=== PATIENT | female | born 1960 | race Two or more races ===

== ENCOUNTER 2024-02-24 14:04 | Emergency (ER) | payer MEDICARE, SELFPAY ==
[2024-02-24 14:26] VITALS: BP 100/69; PULSE 71; RESP 18; TEMP 36.7; O2SAT 99; BMI 35.4
--- NOTE | 2024-02-24 15:20 | XR_ITS ---
Examination: PA lateral chest 2 views Technique: Upright PA lateral chest 2 views Exam date and time: March 05, 2024 1533 hrs. Indications: Onset chest pain today. Findings: Normal heart size. No pneumonia or pulmonary edema Moderate osteopenia Impression: No pneumonia or pulmonary edema
--- NOTE | 2024-02-24 15:20 | EKG_ITS ---
[facility] Test Date: 2024-02-24 Pat Name: KRISTAL CHAVARRIA Department: Room: - Gender: Female Online Merchant: : 1960 Requested By: Jacinto Silva ([facility]) Order Number: [id number] Reading MD: Jacinto Silva ([facility]) Measurements Intervals Velarde Rate: 77 P: -7 GA: 119 QRS: -7 QRSD: 85 T: -1 QT: 378 QTc: 428 Interpretive Statements SINUS RHYTHM WITH SHORT GA INTERVAL LOW QRS VOLTAGE IN PRECORDIAL LEADS [QRS DEFLECTION < 1.0 mV IN CHEST LEADS] POSSIBLE ANTERIOR MYOCARDIAL INFARCTION , PROBABLY OLD [30 ms Q WAVE IN V3/V4, OR R < 0.2 mV IN V4] Compared to ECG 02/14/2023 14:43:18 Short GA interval now present Myocardial infarct finding still present /store/S0/[id number]/ecg/[id number].pdf
--- NOTE | 2024-02-24 15:22 | PD.EDRME ---
Rapid Medical Screening Exam RME Arrival date/time: 02/24/24 14:04 63-year-old female with past medical history of liver cirrhosis presents emergency department complaining of shortness of breath and generalized cramps throughout her body. Chief Complaint: General Adult/Misc Complain Time Seen by Provider: 02/24/24 15:15 Vital signs: Vital Signs Temperature 98.0 F 02/24/24 14:26 Pulse Rate 71 02/24/24 14:26 Respiratory Rate 18 02/24/24 14:26 Blood Pressure 100/69 02/24/24 14:26 Pulse Oximetry (%) 99 02/24/24 14:26 Oxygen Delivery Method Room Air 02/24/24 14:26
[2024-02-24 15:46] LABS: Basophils % (Auto) 1 % (0-2.5); Eosinophils # (Auto) 0.2 Thou/mm3 (0.0-0.5); Eosinophils % (Auto) 5 % (0-10); Hematocrit 29.7 % (36.0-46.0); Hemoglobin 9.9 g/dL (12.0-16.0); Immature Granulocytes % (Auto) 0 % (0-0); Immature Granulocytes Auto 0.01 Thou/mm3 (0.00-0.00); Lymphocytes # (Auto) 0.7 Thou/mm3 (1.0-4.8); Lymphocytes % (Auto) 16 % (10-50); Mean Corpuscular HGB Conc 33.3 g/dl (31.0-37.0); Mean Corpuscular Hemoglobin 32.6 pg (25.0-35.0); Mean Corpuscular Volume 98 fL (80-100); Monocytes # (Auto) 0.4 Thou/mm3 (0.0-0.8); Monocytes % (Auto) 9 % (0-12); Neutrophils # (Auto) 2.9 Thou/mm3 (1.8-7.7); Neutrophils % (Auto) 69 % (37-80); Nucleated Red Blood Cell % 0 /100 WBC (0); RDW Standard Deviation 52.9 fL (36.4-46.3); Red Blood Count 3.04 Miln/mm3 (4.00-5.20); White Blood Count 4.2 Thou/mm3 (3.6-11.0)
[2024-02-24 15:52] LABS: Platelet Count 57 Thou/mm3 (140-440)
[2024-02-24 15:55] LABS: B-Type Natriuretic Peptide 85 pg/mL (0-100); INR 1.1 (0.9-1.3); Partial Thromboplastin Time 25.2 Seconds (22.0-36.0); Prothrombin Time 12.1 Seconds (9.0-12.2)
[2024-02-24 15:57] LABS: Alanine Aminotransferase 13 U/L (10-49); Albumin, Serum 2.6 gm/dL (3.4-4.8); Albumin/Globulin Ratio 0.8 (1.2-2.2); Alkaline Phosphatase 90 U/L (46-116); Anion Gap 6 (7-16); Aspartate Amino Transferase 36 U/L (0-34); BUN/Creatinine Ratio 23 Ratio (12-20); Bilirubin,Total 0.9 mg/dL (0.3-1.2); Blood Urea Nitrogen 41 mg/dL (9-23); Calcium 8.5 mg/dL (8.3-10.6); Calcium (Corrected) 9.6 mg/dL (8.5-10.1); Carbon Dioxide 17.4 mMol/L (20.0-31.0); Chloride 115 mMol/L (98-107); Creatinine (Component) 1.8 mg/dL (0.6-1.3); Estimated Creatinine Clearance 35.1 mL/min (>60); Globulin 3.2 gm/dL (2.3-3.5); Glucose 139 mg/dL (74-106); Lipase 73 U/L (12-53); Magnesium 2.1 mg/dL (1.6-2.6); Osmolality,Calculated 287 (275-295); Potassium 4.4 mMol/L (3.4-5.1); Sodium 138 mMol/L (136-145); Total Protein 5.8 gm/dL (5.7-8.2); Troponin I < 0.002 ng/mL (0.0-0.045); eGFR 32 See Note
[2024-02-24 16:03] LABS: Collection Type, Urine Clean Catch
[2024-02-24 16:14] LABS: Slide Review Platelets confirmed
[2024-02-24 16:22] LABS: Amphetamine/Methamp Scrn,U Negative (Negative); Barbiturate Screen,Urine Negative (Negative); Benzodiazepines Screen,Urine Negative (Negative); Benzoylecgonine Screen, Ur Negative (Negative); Fentanyl Screen,Urine Negative (Negative); Opiate Screen,Urine Negative (Negative); THC Screen,Urine Negative (Negative)
[2024-02-24 16:24] LABS: Bilirubin,Urine Negative (Negative); Blood,Urine Trace (Negative); Clarity,Urine Turbid (Clear/Hazy); Color,Urine Yellow (Lt Yel-Yel); Culture Indicated,Urine Not Indicated; Glucose, Urine Negative (Negative); Hyaline Casts,Urine < 1 /hpf (0-1); Ketones,Urine Negative (Negative); Leukocyte Esterase,Urine Positive (Negative); Nitrite,Urine Negative (Negative); PH,Urine 5.5 (5.0-7.0); Protein,Urine Trace (Neg - Trace); RBC,Urine 1 /hpf (0-3); Specific Gravity,Urine 1.022 (1.001-1.035); Squamous Epithelial Cell,Urine 10 /hpf (0-5); Urobilinogen,Urine Negative mg/dL (0.0-1.0); WBC,Urine 5 /hpf (0-5)
[2024-02-24 16:39] VITALS: BP 105/64; RESP 18; TEMP 36.6
[2024-02-24] MEDS: HYDROcodone/APAP 5/325 TABLET 1 TAB PO (16:42)
--- NOTE | 2024-02-24 16:43 | PC.NURSE ---
PATIENT C/O OF BODY ACHES ALL OVER CHRONIC WORSE TODAY. MOANING AND GROANING.
--- NOTE | 2024-02-24 16:57 | EDNOTE_ITS ---
ED General RME/HPI General Chief complaint: General Adult/Misc Complain Stated complaint: CRAMPS ALL OVER BODY HAS CIRRHOSIS Time Seen by Provider: 02/24/24 15:15 Arrival date/time: 02/24/24 14:04 RME / HPI RME / HPI narrative: 63-year-old female with past medical history of liver cirrhosis secondary to hepatitis C and previous alcohol abuse presents emergency department complaining of shortness of breath and generalized cramps throughout her body. Severity of symptoms moderate. Patient denies any diarrhea denies any vomiting denies any other complaints no medication was taken prior travel. Related Data Home Medications ?Medication ?Instructions ?Recorded ?Confirmed allopurinol 100 mg tablet 100 mg PO QDAY 02/15/23 02/15/23 gabapentin 100 mg capsule 100 mg PO TID 02/15/23 02/15/23 lactulose 10 gram/15 mL oral 15 ml PO TID 02/15/23 02/15/23 solution midodrine 10 mg tablet 10 mg PO TID 02/15/23 02/15/23 sodium bicarbonate 650 mg tablet 650 mg PO BID 02/15/23 02/15/23 Previous Rx's ?Medication ?Instructions ?Recorded ciprofloxacin HCl 500 mg tablet 500 mg PO QDAY #30 tabs 02/17/23 furosemide 40 mg tablet 40 mg PO QDAY #30 tabs 02/17/23 spironolactone 25 mg tablet 25 mg PO QDAY #30 tabs 02/17/23 sodium bicarbonate 650 mg tablet 650 mg PO BID #30 tabs 02/24/24 Allergies Allergy/AdvReac Type Severity Reaction Status Date / Time No Known Allergies Allergy Verified 02/24/24 14:07 Review of Systems Review of Systems Narrative Review of Systems: Review of system reviewed and within normal limits except mentioned in HPI ED Exam Narrative Physical exam: VITAL SIGNS: Reviewed. GENERAL APPEARANCE: Alert and interactive, follows commands, no acute distress, HEAD AND FACE: Non-traumatic. ENT: PERRL, pink conjunctivitis, eyelid no trauma, Mucous membrane moist. NECK: Supple, nontender, no nuchal rigidity. CHEST: No tenderness, no crepitus, no paradoxical movement, no retractions. LUNGS: Clear, well ventilated, symmetric, no rales, no wheezing, no ronchi, no stridor, good breath sounds bilaterally. HEART: Regular rate, regular rhythm, no murmur, no gallops. ABDOMEN: Soft, positive bowel sounds, nondistended, no guarding, nontender, no rebound, no masses, RECTAL: Deferred. GENITAL: Deferred. NEUROLOGICAL: Gross motor function intact sensory function intact, Appropriate for age. MUSCULOSKELETAL: low back nontender, full range of motion. EXTREMITIES: Nontender, full range of motion. SKIN: Color pink, dry, no rash, no lacerations, no abrasions, no contusions. LYMPHATICS: Deferred. Course Quality Measures none Orders Category Date Time Status Bedside COVID-19 Antigen Test NOW Care 02/24/24 15:21 Active Bedside Influenza A&B Antigen Test NOW Care 02/24/24 15:21 Active EKG (ED ONLY) *Do not use* NOW Care 02/24/24 15:20 Completed Insert IV NOW Care 02/24/24 20:45 Active EKG (ED Only) Stat Exams 02/24/24 15:20 Draft XR chest 2V Stat Exams 02/24/24 15:20 Completed BNP [B-Type Natriuretic Peptide] Stat Lab 02/24/24 15:30 Completed CBC Stat Lab 02/24/24 15:30 Completed Comprehensive Metabolic Panel Stat Lab 02/24/24 15:30 Completed Drug Screen,Urine Stat Lab 02/24/24 15:55 Completed Lipase Stat Lab 02/24/24 15:30 Completed Mag [Magnesium] Stat Lab 02/24/24 15:30 Completed PT [Prothrombin Time with INR] Stat Lab 02/24/24 15:30 Completed PTT [Partial Thromboplastin Time] Stat Lab 02/24/24 15:30 Completed Troponin I Stat Lab 02/24/24 15:30 Completed Urinalysis, C/S if Indicated Stat Lab 02/24/24 15:55 Completed VBG [Venous Blood Gas] Stat Lab 02/24/24 17:02 Completed HYDROcodone*/APAP 5/325 [[place] 5/325] Med 02/24/24 16:32 Discontinued 1 tab PO X1 ONE Sodium Bicarb 8.4% 50ml Vial* Med 02/24/24 18:05 Discontinued 50 meq IV X1 ONE Sodium Chloride 0.9% 1000 ml [Ns] 1,000 ml Med 02/24/24 18:05 Discontinued IV 999 mls/hr Vital Signs Vital signs: Vital Signs Temperature 98.0 F 02/24/24 14:26 Pulse Rate 71 11/09/24 14:26 Respiratory Rate 18 02/24/24 14:26 Blood Pressure 100/69 02/24/24 14:26 Pulse Oximetry (%) 99 02/24/24 14:26 Oxygen Delivery Method Room Air 02/24/24 14:26 [facility] Patient data External records reviewed:: None Clinical information provided by:: patient Social determinants that could affect healthcare access:: none Patient has the following chronic illnesses:: Chronic kidney disease How is presenting disease/condition affected by chronic disease/condition?: e xacerbated by Evaluation data The following diagnostics were reviewed and interpreted by me:: lab results Lab and/or radiology exams considered but not ordered:: None Interpretation Summary: CMP is significant for chloride 115, M17.4 Anion gap of 6 BUN of 47 creatinine of 1.8 glucose 139 patient pH and venous blood gas was noted to be 7.3. I personally reviewed and interpreted the x-ray of this patient. There is no acute abnormalities found, no infiltrates no pneumothorax no hemothorax normal chest x-ray. Review of other structures was without significant abnormal findings also. I additionally reviewed the radiologist report and agree with the interpretation. EKG as interpreted by me showed normal sinus rhythm, ventricular rate of 77 bpm, no ST segment elevation or depression noted. Medications Medications considered but not ordered:: None Medication administrations:: Medication Administration History Discontinued Medications Hydrocodone Bitart/Acetaminophen (Hydrocodone/Apap 5/325 Tablet) 1 tab PO X1 ONE Stop: 02/24/24 16:33 Last Admin: 02/24/24 16:42 Dose: 1 tab Documented By: USMAN Sodium Chloride (Ns) 1,000 mls @ 999 mls/hr IV .Q1H1M ONE Stop: 02/24/24 19:05 Last Admin: 02/24/24 21:31 Dose: 999 mls/hr Documented By: GERMANIA Sodium Bicarbonate (Sodium Bicarb Inj 8.4% 1 Meq/Ml Vial 50 Ml) 50 meq IV X1 ONE Stop: 02/24/24 18:06 Last Admin: 02/24/24 21:31 Dose: 50 meq Documented By: GERMANIA Cawood IV fluids and sodium bicarb Consultations Consultation(s) initiated? (list below): Yes Consultation #1 (Physician, Specialty, Details): Consulted Dr. Jolly , direct sales representative on-call, and advised me to medicate the patient with IV fluids sodium bicarb and discharged on bicarb also. Follow-up with the clinic in few days. Diagnosis Differential Diagnosis ED Complaint MDM: Hyperchloremic metabolic acidosis, non- anion gap, dehydration, CKD Most likely diagnosis given after review of the tests above:: CKD Admission Indicated Admission indicated?: not indicated Explain why admission is indicated or not indicated:: Stable Admission Request Was there a request for admission?: No Disposition Plan Disposition Plan: Discharge Discharge Attestation Discharge Attestation: The patient was given an opportunity to ask questions and understood the discharge instructions. Discharge instructions specifically effects, indications for sooner follow up or return to the emergency department, and the expected course of current diagnosis. Patient condition: Stable Medical Decision Making MDM Narrative MDM Narrative: Spoke with Dr. Jolly regarding patient's case including laboratory results, and told me to give IV fluids and give sodium bicarb and send the patient home on sodium bicarb and follow-up in her clinic next week. Plan of care discussed with the patient agrees with the plan. Differential Diagnosis Differential Diagnosis: Hyperchloremic metabolic acidosis, non-anion gap, dehydration, CKD Lab Data 02/24/24 15:30 02/24/24 15:30 Labs: Lab Results 02/24/24 02/24/24 02/24/24 Range/Units 15:30 15:55 17:02 WBC 4.2 (3.6-11.0) Thou/mm3 RBC 3.04 L (4.00-5.20) Miln/mm3 Hgb 9.9 L (12.0-16.0) g/dL Hct 29.7 L (36.0-46.0) % MCV 98 (80-100) fL MCH 32.6 (25.0-35.0) pg MCHC 33.3 (31.0-37.0) g/dl RDW Std Deviation 52.9 H (36.4-46.3) fL Plt Count 57 L (140-440) Thou/mm3 Neut % (Auto) 69 (37-80) % Lymph % (Auto) 16 (10-50) % [place] % (Auto) 9 (0-12) % Eos % (Auto) 5 (0-10) % Baso % (Auto) 1 (0-2.5) % Neut # (Auto) 2.9 (1.8-7.7) Thou/mm3 Lymph # (Auto) 0.7 L (1.0-4.8) Thou/mm3 [place] # (Auto) 0.4 (0.0-0.8) Thou/mm3 Eos # (Auto) 0.2 (0.0-0.5) Thou/mm3 Baso # (Auto) 0.0 (0.0-0.2) Thou/mm3 Immature Gran # (Auto) 0.01 H (0.00-0.00) Thou/mm3 Absolute Nucleated RBC 0.00 (0.00-0.00) Thou/mm3 Immature Gran % 0 (0-0) % Nucleated RBC % 0 (0) /100 WBC PT 12.1 (9.0-12.2) Seconds INR 1.1 (0.9-1.3) APTT 25.2 (22.0-36.0) Seconds VBG pH 7.30 L (7.33-7.66) VBG pCO2 39 (36-56) mmHg VBG pO2 27 (15-58) mmHg VBG O2 Sat (Sonia) 42 L (96-97) % VBG Base Excess -7 L (-3-3) Sodium 138 (136-145) mMol/L Potassium 4.4 (3.4-5.1) mMol/L Chloride 115 H (98-107) mMol/L Carbon Dioxide 17.4 L (20.0-31.0) mMol/L Anion Gap 6 L (7-16) BUN 41 H (9-23) mg/dL Creatinine 1.8 H (0.6-1.3) mg/dL Estim Creat Clear Calc 35.1 L (>60) mL/min eGFR 32 L (60 - ) See Note BUN/Creatinine Ratio 23 H (12-20) Ratio Glucose 139 H (74-106) mg/dL Calculated Osmolality 287 (275-295) Calcium 8.5 (8.3-10.6) mg/dL Corrected Calcium 9.6 (8.5-10.1) mg/dL Magnesium 2.1 (1.6-2.6) mg/dL Total Bilirubin 0.9 (0.3-1.2) mg/dL AST 36 H (0-34) U/L ALT 13 (10-49) U/L Alkaline Phosphatase 90 (46-116) U/L Troponin I < 0.002 (0.0-0.045) ng/mL B-Natriuretic Peptide 85 (0-100) pg/mL Total Protein 5.8 (5.7-8.2) gm/dL Albumin 2.6 L (3.4-4.8) gm/dL Globulin 3.2 (2.3-3.5) gm/dL Albumin/Globulin Ratio 0.8 L (1.2-2.2) Lipase 73 H (12-53) U/L Ur Collection Type Clean Catch Urine Color Yellow (Lt Yel-Yel) Urine Clarity Turbid A (Clear/Hazy) Urine pH 5.5 (5.0-7.0) Ur Specific [place] 1.022 (1.001-1.035) Urine Protein Trace (Neg - Trace) Urine Glucose (UA) Negative (Negative) Urine Ketones Negative (Negative) Urine Blood Trace (Negative) Urine Nitrite Negative (Negative) Urine Bilirubin Negative (Negative) Urine Urobilinogen (Auto) Negative (0.0-1.0) mg/dL Ur Leukocyte Esterase Positive (Negative) Urine RBC 1 (0-3) /hpf Urine WBC 5 (0-5) /hpf Ur Squamous Epith Cells 10 H (0-5) /hpf Urine Bacteria None (None) Hyaline Casts < 1 (0-1) /hpf Ur Culture Indicated? Not Indicated Urine Opiates Screen Negative (Negative) Urine Fentanyl Screen Negative (Negative) Ur Barbiturates Screen Negative (Negative) U Amphetamin/Meth Scrn Negative (Negative) U Benzodiazepines Scrn Negative (Negative) U Cocaine Metab Screen Negative (Negative) U Marijuana (THC) Screen Negative (Negative) Misc Test Result Platelets confirmed Discharge Plan Plan Patient Disposition: HOME (Self Care) Disposition Comment: stable Prescriptions/Referrals Prescriptions/Med Rec: New sodium bicarbonate 650 mg tablet 650 mg PO BID Qty: 30 0RF No Action allopurinol 100 mg tablet 100 mg PO QDAY sodium bicarbonate 650 mg tablet 650 mg PO BID gabapentin 100 mg capsule 100 mg PO TID Patient Comments: take 1 capsule by mouth three times a day midodrine 10 mg tablet 10 mg PO TID Patient Comments: take 1 tablet by mouth three times a day lactulose 10 gram/15 mL solution 15 ml PO TID furosemide 40 mg tablet 40 mg PO QDAY Qty: 30 2RF spironolactone 25 mg tablet 25 mg PO QDAY Qty: 30 1RF ciprofloxacin HCl 500 mg tablet 500 mg PO QDAY Qty: 30 2RF Referrals: No Primary/Family,Physician [Primary Care Provider] - In 1 week Problem List Clinical Impression: CKD (chronic kidney disease) Patient/Caregiver Discharge Instructions Discharge Activity: activity as tolerated Education Materials: ED Chronic Kidney Disease (CKD) Additional Instructions: Thank you for the opportunity for serving you today. You are stable for discharged . You are advised to: Follow-up with your PCP in 1 to 2 days, follow-up with your direct sales representative as instructed Return to ED for worsening of symptoms Take medication as prescribed Print Language: Bhutanese Stand Alone Forms: [facility] Award Info., Patient Portal Info Letter PA/CERTIFIED HYPERBARIC TECHNOLOGIST Supervising Physician JEFFREY/SAMUEL Supervising Physician: MD Medina
[2024-02-24 17:27] LABS: Base Excess, Venous -7 (-3-3); O2 Saturation, Venous 42 % (96-97); PCO2, Venous 39 mmHg (36-56); PO2, Venous 27 mmHg (15-58)
[2024-02-24 20:21] VITALS: BP 121/68; PULSE 75; RESP 18; TEMP 36.3; O2SAT 100
[2024-02-24] MEDS: SODIUM CHLORIDE 0.9% 1000 ML 1,000 ML 999 ML IV (21:31)
[2024-02-24] MEDS: SODIUM BICARB INJ 8.4% 1 mEq/ML VIAL 50 ML 50 MEQ IV (21:31)
[2024-02-24 22:00] VITALS: BP 123/45; PULSE 75; RESP 18; TEMP 36.3; O2SAT 100
== END 2024-02-24 20:19 | disposition home or self-care (01) ==
PROVIDERS: Nurse Practitioner Family; Emergency Provider Emergency Medicine
DX: N18.9 Chronic kidney disease, unspecified (principal); R07.9 Chest pain, unspecified
CPT/HCPCS: 36415; 71046; 80053; 80307; 81001; 82803; 83690; 83735; 83880; 84484; 85025; 85610; 85730; 93005; 99284; J7030; A9270

== ENCOUNTER 2024-04-15 21:42 | Emergency (ER) | payer MEDICARE, MEDICAID, SELFPAY ==
[2024-04-15 21:53] VITALS: PULSE 82; O2SAT 97; BMI 35.4
[2024-04-15 22:25] VITALS: BP 109/70; PULSE 86; RESP 18; TEMP 37.2; O2SAT 99
--- NOTE | 2024-04-15 22:30 | XR_ITS ---
Examination: AP lateral chest 2 views Technique: Sitting AP lateral chest 2 views Exam date and time: April 15, 2024 10:44 PM Comparison February 24, 2024 Indications: Chest pain today. Findings: Reduced inspiratory effort Normal heart size No pneumonia or pulmonary edema Impression: Poor inspiratory effort chest x-ray
--- NOTE | 2024-04-15 22:31 | PD.EDRME ---
Rapid Medical Screening Exam RME Arrival date/time: 04/15/24 21:42 63-year-old female with past medical history of kidney disease and liver disease presents emergency department complaining of generalized weakness for 5 days. Patient reports recently tested positive for influenza at primary provider's office. Chief Complaint: Flu Like Symptoms Time Seen by Provider: 04/15/24 22:24 Vital signs: Vital Signs Temperature 98.9 F 04/15/24 22:25 Pulse Rate 86 04/15/24 22:25 Respiratory Rate 18 04/15/24 22:25 Blood Pressure 109/70 04/15/24 22:25 Pulse Oximetry (%) 99 04/15/24 22:25 Oxygen Delivery Method Room Air 04/15/24 22:25 Vital signs reviewed by provider: Yes
[2024-04-15 22:51] LABS: Basophils % (Auto) 0 % (0-2.5); Eosinophils % (Auto) 0 % (0-10); Hematocrit 29.6 % (36.0-46.0); Hemoglobin 9.6 g/dL (12.0-16.0); Immature Granulocytes % (Auto) 1 % (0-0); Immature Granulocytes Auto 0.07 Thou/mm3 (0.00-0.00); Lymphocytes # (Auto) 0.4 Thou/mm3 (1.0-4.8); Lymphocytes % (Auto) 3 % (10-50); Mean Corpuscular HGB Conc 32.4 g/dl (31.0-37.0); Mean Corpuscular Volume 96 fL (80-100); Monocytes # (Auto) 0.8 Thou/mm3 (0.0-0.8); Monocytes % (Auto) 6 % (0-12); Neutrophils # (Auto) 12.2 Thou/mm3 (1.8-7.7); Neutrophils % (Auto) 90 % (37-80); Nucleated Red Blood Cell % 0 /100 WBC (0); RDW Standard Deviation 53.9 fL (36.4-46.3); White Blood Count 13.5 Thou/mm3 (3.6-11.0)
[2024-04-15 23:01] LABS: Platelet Count 60 Thou/mm3 (140-440)
[2024-04-15 23:11] LABS: Alanine Aminotransferase 8 U/L (10-49); Albumin, Serum 2.9 gm/dL (3.4-4.8); Albumin/Globulin Ratio 0.9 (1.2-2.2); Alkaline Phosphatase 89 U/L (46-116); Anion Gap 8 (7-16); Aspartate Amino Transferase 36 U/L (0-34); B-Type Natriuretic Peptide 89 pg/mL (0-100); BUN/Creatinine Ratio 23 Ratio (12-20); Bilirubin,Total 1.2 mg/dL (0.3-1.2); Blood Urea Nitrogen 45 mg/dL (9-23); Calcium 9.1 mg/dL (8.3-10.6); Carbon Dioxide 18.3 mMol/L (20.0-31.0); Chloride 112 mMol/L (98-107); Estimated Creatinine Clearance 31.6 mL/min (>60); Globulin 3.1 gm/dL (2.3-3.5); Glucose 158 mg/dL (74-106); Magnesium 2.2 mg/dL (1.6-2.6); Osmolality,Calculated 290 (275-295); Sodium 138 mMol/L (136-145); Troponin I < 0.020 ng/mL (0.0-0.045); eGFR 28 See Note
--- NOTE | 2024-04-15 23:12 | EDNOTE_ITS ---
Upper Respiratory Inf. RME/HPI General Chief Complaint: Flu Like Symptoms Stated Complaint: POSSIBLE FLU Time Seen by Provider: 04/15/24 22:24 Arrival date/time: 04/15/24 21:42 RME / HPI RME / HPI Narrative: 04/15/24 21:42 63-year-old female with past medical history of kidney disease and liver disease presents emergency department complaining of generalized weakness for 5 days. Patient reports recently tested positive for influenza at primary provider's office. ---- Dr. Calderon?s Main ED Evaluation: 63yo female with pmhx CKD, HTN, DM presents to the ED for a chief complaint of flu-like symptoms x 5 days. Patient states her symptoms got significantly worse today, reporting she's been generally weak and her legs have been numb (states this happens when she gets sick). She reports associated fatigue, cough, N/V/D, and a headache. She states she hasn't been eating. She denies any fever or any other associated symptoms. No known allergies. Related Data Home Medications ?Medication ?Instructions ?Recorded ?Confirmed allopurinol 100 mg tablet 100 mg PO QDAY 02/15/23 02/15/23 gabapentin 100 mg capsule 100 mg PO TID 02/15/23 02/15/23 lactulose 10 gram/15 mL oral 15 ml PO TID 02/15/23 02/15/23 solution midodrine 10 mg tablet 10 mg PO TID 02/15/23 02/15/23 sodium bicarbonate 650 mg tablet 650 mg PO BID 02/15/23 02/15/23 Previous Rx's ?Medication ?Instructions ?Recorded ciprofloxacin HCl 500 mg tablet 500 mg PO QDAY #30 tabs 02/17/23 furosemide 40 mg tablet 40 mg PO QDAY #30 tabs 02/17/23 spironolactone 25 mg tablet 25 mg PO QDAY #30 tabs 02/17/23 sodium bicarbonate 650 mg tablet 650 mg PO BID #30 tabs 02/24/24 ondansetron 4 mg disintegrating 4 mg PO Q6H PRN nausea and 04/16/24 tablet vomiting #14 tabs Allergies Allergy/AdvReac Type Severity Reaction Status Date / Time No Known Allergies Allergy Verified 04/15/24 22:18 Review of Systems Review of Systems Systems Reviewed: All systems reviewed, normal except as documented Past Medical History Past Medical History NEUROLOGIC: Positive Neurological Disorders and Migraine; Negative Seizures CARDIAC: Positive Cardiac Disorders and Hypertension; Negative Congestive Heart Failure RESPIRATORY: Negative Chronic Obstructive Pulmonary Disease (COPD) GASTROINTESTINAL: Positive Gastrointestinal Disorders, Cirrhosis, Pancreatitis, Gastrointestinal Bleed, Hiatal Hernia and Gastroesophageal Reflux Disease GENITOURINARY: Negative Genitourinary Disorders or Renal Disease MUSCULOSKELETAL: Positive Musculoskeletal Disorders and Arthritis ENT: Positive Deafness (left ear) ENDOCRINE: Positive Endocrine Disorders and Diabetes Mellitus Type 2; Negative Diabetes Mellitus Type 1 HEMATOLOGIC: Positive Anemia PSYCHO/SOCIAL: Positive Depression and Anxiety OTHER HISTORY: Positive Blood Transfusions; Negative Hospitalization, Autoimmune Disease, Down Syndrome, Developmental Delay, Shingles, Falls, Blood Transfusion Reaction or Anesthesia Reactions Family History FAMILY HISTORY: Positive Family Cardiac Disorders; Negative Family Psychiatric Problems, Family Respiratory Disorders, Family Gastrointestinal Problems or Family Cancer Social History SMOKING STATUS: Never smoker SECOND HAND EXPOSURE: No ED Exam Narrative Physical exam: GENERAL APPEARANCE: alert and oriented x 4, appears fatigued, well-developed, no acute distress VITALS: All vitals were reviewed and the pulse ox is 99% on room air, which is normal according to my interpretation. HEENT: Normocephalic, atraumatic; pupils equal, round, reactive to light; EOMI; mucous membranes pink, moist; oropharynx clear NECK: Supple LUNGS: CTABL; no wheezes, no rales, no rhonchi HEART: Regular rate, regular rhythm; normal S1, S2; no murmurs ABDOMEN: non distended; normal BS; soft, no tenderness, no guarding, no rebound; no masses, no organomegaly, no hernia BACK: no CVA tenderness EXTREMITIES: atraumatic; no edema NEUROLOGIC: awake; alert and oriented x4; cranial nerves II-XII grossly intact; no focal sensory or motor deficits PSYCHIATRIC: appropriate mood and affect SKIN: warm, dry, normal color; no rashes Course Course Course Narrative: CXR is ordered for determining the etiology of weakness. Quality Measures none Orders Category Date Time Status Bedside COVID-19 Antigen Test NOW Care 04/15/24 23:14 Active Bedside Influenza A&B Antigen Test NOW Care 04/15/24 23:14 Completed EKG (ED ONLY) *Do not use* NOW Care 04/15/24 22:30 Completed Insert IV NOW Care 04/16/24 00:01 Active EKG (ED Only) Stat Exams 12/30/24 22:30 Ordered XR chest 2V Stat Exams 04/15/24 22:30 Completed B-Type Natriuretic Peptide Stat Lab 04/15/24 22:36 Completed CBC Stat Lab 04/15/24 22:36 Completed Comprehensive Metabolic Panel Stat Lab 04/15/24 22:36 Completed Magnesium Stat Lab 04/15/24 22:36 Completed Partial Thromboplastin Time Stat Lab 04/15/24 22:36 Completed Prothrombin Time with INR Stat Lab 04/15/24 22:36 Completed RSV [Respiratory Syncytial Virus Ag] Stat Lab 04/15/24 23:20 Completed Troponin I Stat Lab 04/15/24 22:36 Completed Urinalysis, C/S if Indicated Stat Lab 04/15/24 22:31 Ordered Dextrose 5%-0.45% Ns [D5-1/2Ns] 1,000 ml Med 04/15/24 23:34 Active IV 250 mls/hr DiphenhydrAMINE INJ [Benadryl Inj] Med 04/15/24 23:30 Discontinued 12.5 mg IVP X1 ONE Metoclopramide Inj [Reglan Inj] Med 04/15/24 23:30 Discontinued 5 mg IVP X1 ONE Sodium Chloride 0.9% 500 ml [Ns] 500 ml Med 04/15/24 23:33 Discontinued IV 999 mls/hr Reevaluation(s) Reevaluation #1: Patient states she feels better compared to when she initially came in. Discussed results with the patient. Patient is stable to be discharged home. Time: 02:20 Vital Signs Vital signs: Vital Signs Temperature 98.9 F 04/15/24 22:25 Pulse Rate 86 04/15/24 22:25 Respiratory Rate 18 04/15/24 22:25 Blood Pressure 109/70 04/15/24 22:25 Pulse Oximetry (%) 99 04/15/24 22:25 Oxygen Delivery Method Room Air 04/15/24 22:25 Upper Respiratory Infection MDM Narrative MDM Narrative:: Scribe Attestation: 04/15/24 Lavonne Chen am scribing for and in the presence of Dr. Calderon. Patient data External records reviewed:: [facility] previous records (Per chart review, patient was seen here on 02/24/24 for CKD.) Clinical information provided by:: patient Social determinants that could affect healthcare access:: none Patient has the following chronic illnesses:: CKD, HTN, DM, GERD How is presenting disease/condition affected by chronic disease/condition?: uneffected by Evaluation data The following diagnostics were reviewed and interpreted by me:: lab results, radiology exam(s) and EKG tracing(s) Lab and/or radiology exams considered but not ordered:: none Interpretation Summary: WBC count is elevated at 13.5, Creatinine is elevated at 2.0, Glucose is 158, troponin is normal, BNP is normal, according to my interpretation. EKG done at 2242, sinus rhythm, rate of 86, left axis deviation, no ectopy, no acute ischemia, according to my interpretation. ------ [facility] Report Signed Patient: KRISTAL CHAVARRIA [facility]. Record#: [id number] Birthdate: 1960 Age/Sex: 63 / F Location: [facility] Attending Dr: Ordering Physician: Марина Silva (SAMUEL),Jacinto BAKER Date of Service: 04/15/24 Procedure(s): XR chest 2V Accession Number(s): [id number] cc: Bhavik Corral MD; Марина Silva (SAMUEL),Jacinto BAKER; Jesus Parmar MD~ Examination: AP lateral chest 2 views Technique: Sitting AP lateral chest 2 views Exam date and time: April 15, 2024 10:44 PM Comparison February 24, 2024 Indications: Chest pain today. Findings: Reduced inspiratory effort Normal heart size No pneumonia or pulmonary edema Impression: Poor inspiratory effort chest x-ray Dictated By: Bhavik Corral MD Signed By: <Electronically signed by Bhavik Corral MD in [place]> 04/15/24 6593 Medications / Prescriptions Medications or Prescriptions considered but not ordered:: none Medication administrations:: Medication Administration History Dextrose/Sodium Chloride (D5-1/2ns) 1,000 mls @ 250 mls/hr IV .Q4H DAVIE Stop: 04/16/24 03:33 Last Admin: 04/16/24 00:41 Dose: 250 mls/hr Documented By: SF Discontinued Medications Diphenhydramine HCl (Diphenhydramine Inj 50 Mg/Ml Vial) 12.5 mg IVP X1 ONE Stop: 04/15/24 23:31 Last Admin: 04/16/24 00:02 Dose: 12.5 mg Documented By: HANSA Sodium Chloride (Ns) 500 mls @ 999 mls/hr IV .Q31M ONE Stop: 04/16/24 00:03 Last Admin: 04/16/24 00:01 Dose: 999 mls/hr Documented By: HANSA Metoclopramide HCl (Metoclopramide Inj 5 Mg/Ml Vial 2 Ml) 5 mg IVP X1 ONE; Protocol Stop: 04/15/24 23:31 Last Admin: 04/16/24 00:04 Dose: 5 mg Documented By: HANSA see above, if any Consultations Consultation(s) initiated? (list below): No Diagnosis Upper Respiratory Differential Diagnosis: upper respiratory infection, viral infection, bronchitis, influenza and other (COVID, pneumonia) Most likely diagnosis given after review of the tests above:: see below Admission Indicated Admission indicated?: not indicated Admission Request Was there a request for admission?: No Disposition Plan Disposition Plan: Discharge Discharge Attestation Discharge Attestation: The patient and all family members were given an opportunity to ask questions and understood the discharge instructions. Discharge instructions specifically effects, indications for sooner follow up or return to the emergency department, and the expected course of current diagnosis. Patient condition: Stable Discharge Plan Plan Patient Disposition: HOME (Self Care) Disposition Comment: Stable for discharge Patient condition on transfer: Stable Prescriptions/Referrals Prescriptions/Med Rec: New ondansetron 4 mg tablet,disintegrating 4 mg PO Q6H PRN (Reason: nausea and vomiting) Qty: 14 0RF No Action allopurinol 100 mg tablet 100 mg PO QDAY sodium bicarbonate 650 mg tablet 650 mg PO BID gabapentin 100 mg capsule 100 mg PO TID Patient Comments: take 1 capsule by mouth three times a day midodrine 10 mg tablet 10 mg PO TID Patient Comments: take 1 tablet by mouth three times a day lactulose 10 gram/15 mL solution 15 ml PO TID furosemide 40 mg tablet 40 mg PO QDAY Qty: 30 2RF spironolactone 25 mg tablet 25 mg PO QDAY Qty: 30 1RF ciprofloxacin HCl 500 mg tablet 500 mg PO QDAY Qty: 30 2RF sodium bicarbonate 650 mg tablet 650 mg PO BID Qty: 30 0RF Referrals: Jesus Parmar MD [Primary Care Provider] - In 1 week Problem List Clinical Impression: Influenza, Vomiting Patient/Caregiver Discharge Instructions Education Materials: Self-Care for Vomiting and Diarrhea, The Flu (Influenza), ED Influenza (Adult), ED Vomiting (Adult) Additional Instructions: Please follow-up with your primary care doctor within the next several days As always you should return to the emergency department if you are not feeling better within a couple of days or if you notice yourself worsening in any way. There is a prescription for a medicine called Mariusz waiting for you at your pharmacy. This medicine is also called ondansetron. This medicine should go underneath your tongue up to 4 times a day to stop nausea and vomiting. Print Language: Micronesian Stand Alone Forms: [facility] Info., Patient Portal Info Letter
[2024-04-15 23:57] LABS: Slide Review Platelets confirmed
[2024-04-15 23:58] LABS: Respiratory Syncytial Virus Ag Negative (Negative)
[2024-04-16] MEDS: SODIUM CHLORIDE 0.9% 500 ML 500 ML 999 ML IV (00:01)
[2024-04-16] MEDS: DiphenhydrAMINE INJ 50 MG/ML VIAL 12.5 MG IVP (00:02)
[2024-04-16] MEDS: METOCLOPRAMIDE INJ 5 MG/ML VIAL 2 ML IVP (00:04)
[2024-04-16 00:20] LABS: INR 1.2 (0.9-1.3); Partial Thromboplastin Time 30.8 Seconds (22.0-36.0); Prothrombin Time 12.5 Seconds (9.0-12.2)
[2024-04-16] MEDS: DEXTROSE 5%-0.45% NS 1,000 ML 250 ML IV (00:41)
[2024-04-16 03:27] VITALS: BP 122/59; PULSE 78; RESP 18; TEMP 37.1; O2SAT 100
[2024-04-16 04:23] VITALS: BP 124/82; PULSE 70; RESP 16; TEMP 36.7; O2SAT 97
== END 2024-04-16 04:25 | disposition home or self-care (01) ==
PROVIDERS: Emergency Provider Emergency Medicine; PCP Internal Medicine
DX: J11.1 Influenza due to unidentified influenza virus with other respiratory manifestations (principal); R94.31 Abnormal electrocardiogram [ECG] [EKG]; I12.9 Hypertensive chronic kidney disease with stage 1 through stage 4 chronic kidney disease, or unspecified chronic kidney disease; N18.9 Chronic kidney disease, unspecified; E11.22 Type 2 diabetes mellitus with diabetic chronic kidney disease
CPT/HCPCS: 36415; 71046; 80053; 81001; 83735; 83880; 84484; 85025; 85610; 85730; 87400; 87634; 87811; 93005; 96361; 96374; 96375; 99284; J1200; J2765; J7040; J7042